=== PATIENT | female | born 1990 | race Caucasian/White ===

== ENCOUNTER 2017-01-29 23:16 | Emergency (ER) | payer SELFPAY ==
[~2017-01-29] VITALS: Ht 170.2 cm; Wt 54.9 kg
[~2017-01-29 23:16] MED LIST: NO ROUTINE MEDS
[2017-01-29 23:20] VITALS: Ht 170.2 cm; Wt 54.9 kg
--- NOTE | 2017-01-29 23:45 | ERPDOC ---
Departure Disposition Decision Date: January 29, 2017 Disposition Decision Time: 23:46 Disposition: 01 DISCHARGED HOME, SELF-CARE Impression Impression Impression: Primary Impression: Acute otitis media Qualified Codes: H66.002 - Acute suppurative otitis media without spontaneous rupture of ear drum, left ear Severity: Moderate Condition: Stable Seen By: Mid-level only Referrals: JEANNE ARANGO APRN (Family) Patient Instructions: Otitis Media (ED) Problems/Meds/Labs Reviewed?: Yes Medications reviewed and manag: Yes Additional Instructions: Take the Zithromax as prescribed as well as the prednisone. Follow up with your primary care provider if this is not improving in the next 1-2 days. May take over the counter medications as needed for pain. Follow up care ordered?: Yes Mental Status: Alert Scripts Azithromycin (Zithromax) 250 Mg Tablet 1 TAB PO DAILY, #4 TAB 0 Refills TAKE TWO ON DAY ONE, THEN ONE TAB DAILY UNTIL ALL TAKEN. Prov: MANUEL PACKER APRN 01/29/17 Prednisone (Prednisone) 20 Mg Tablet 20 MG PO BIDWM, #6 TAB 0 Refills Take 1 tablet, by mouth, 2 times a day with meals. Prov: MANUEL PACKER APRN 01/29/17 HPI - EENT General General Chief Complaint: Ear Pain/Injury Stated Complaint: LEFT EAR PAIN Time Seen by Provider: 23:41 Source: patient Exam Limitations: no limitations HPI - EENT General Initial Comments She has been having some left ear pain for the last few days. Feels like it pops and then she hears a loud ringing in her ear several times a day. She denies any fever or chills or nasal congestion/drainage. She denies any history of trouble with her ears in the past. Has not taken anything for this so far. Occurred At: home Onset/Timing: Gradual Duration: other (Over the last several days) Severity: moderate Location: ear (L) Prearrival Treatment: no prearrival treatment Associated Symptoms: change in hearing (at times hears a loud ringing sound), DENIES: cough, drooling, ear drainage, facial pain/swelling, fever, malaise, nasal congestion/drainage, poor fluid intake, poor solids intake, sinus infection, sore throat, tooth pain, voice change Allergies: Coded Allergies: peanut (Verified Allergy, Severe, THROAT SWELLING, RESP. DISTRESS, 08/30/16 ) "FROM PEANUT BUTTER" Penicillins (Verified Allergy, Intermediate, RASH, 08/30/16) Past History Past Medical History Pt denies signifigant PMH ENMT: sore throats Hx Echocardiogram: No Respiratory: pneumonia Female: living children Neurological: headaches Surgical History Denies Surgeries Family History Family PMH: FOUND: cancer, diabetes Vaccines Hx Influenza Vaccination: No Hx Pneumococcal Vaccination: No Hx Tetanus, Diptheria, Pertuss: Yes (06/13/10) Social History Smoking Status: Never smoker Substance Use Type: does not use Alcohol Intake: occasionally Sexuality: male partner Review of Systems Constitutional Constitutional: DENIES: chills, dizziness, fatigue, fever, weakness Eyes Vision: DENIES: blurring, double vision ENMT Ears: pain, DENIES: drainage Sinuses: DENIES: congestion, rhinorrhea Mouth/Throat: DENIES: painful swallowing, scratchy throat, sore throat Cardiovascular Cardiac: DENIES: chest pain, orthopnea Rhythm/Rate: DENIES: irregular beat, palpitations Pulmonary Respiratory: DENIES: cough, dyspnea, sputum Integumentary Skin: DENIES: rash Neurological General: DENIES: headache, numbness, tingling, weakness Physical Exam General General Nourishment: well nourished, well developed, appears stated age, no acute distress, adult, thin General Body Habitus: well groomed Vitals and Pain First Documented Vital Signs Date Time Temp Pulse Resp B/P Pulse Ox O2 Delivery O2 Flow Rate FiO2 01/29/17 23:20 98.4 71 18 132/87 99 Room Air Weight: Kilograms: Height (feet): 5 Height (inches): 7.00 Triage Pain Scale: RN VS reviewed by Provider: Yes Normal Exams: Eyes: Pupils are PERRLA w/ EOMI, No scleral icterus, irritation, or foreign bodies noted Neck: Full range of motion, without adenopathy, JVD, bruits or thyromegaly Lymphatic: No lymphadenopathy, or lymphedema noted Integumentary: No rashes, hives, or bruising noted Neurologic: Patient is alert, and oriented Psychiatric: Patient exhibits, appropriate attention, emotion and affect ENMT (brief) ENMT Brief: FOUND: mucosa moist, normal dentition, normal tonsils, NOT FOUND: lesions, nasal erythema, nasal exudate, nasal swelling, petechiae, pharnyx erythema, tonsillar deviation ENMT Tympanic Membrane #1: Location: Right Tympanic Membrane: FOUND Normal Hearing: FOUND: normal acuity Tympanic Membrane #2: Location: Left Tympanic Membrane: FOUND Erythema, FOUND other (appears slightly thickened in the region that is not inflamed), NOT FOUND Bulging, NOT FOUND Fluid, NOT FOUND Mobility, NOT FOUND Perforation, NOT FOUND Retracted Hearing: FOUND: normal acuity Pharynx: NOT FOUND: cobblestoning, displacement, exudates, lateral pillar sign , posterior drainage, tonsil color, uvular deviation Jaw: NOT FOUND: trismus Differential Diagnoses Considering: Other (AOM, OME, eustacian tube dysfunction, TM perforation) Progress Results/Orders Orders Procedure Category Date Status Time Azithromycin PHA 01/30/17 Complete (Zithromax 500 Mg) 00:00 Prednisone PHA 01/30/17 Complete (Prednisone) 00:00 Medications Current ED Medications Azithromycin (ZITHROMAX 500 mg) 500 mg O ONCE PO Last administered on 00:05; Start 01/30/17 at 00:00; Stop 01/30/17 at 00:01; Status DC Prednisone (PredniSONE) 20 mg O ONCE PO Last administered on 01/30/17 00:05; Start 01/30/17 at 00:00; Stop 01/30/17 at 00:01; Status DC Progress Progress Her left TM does appear inflamed and erythematous. Will have her start on Zithromax today and a dose of steroids as well. Will have her follow up with her PCP if this is not improving in the next 1-2 days. Ibuprofen and/or Tylenol as needed for pain. MANUEL PACKER APRN January 29, 2017 23:45
[2017-01-29] MEDS ORDERED: AZIT250T PO (23:48)
[2017-01-29] MEDS ORDERED: PRED20TA PO (23:48)
[2017-01-30] MEDS ORDERED: AZITHROMYCIN 500 MG TABLET PO ONE
[2017-01-30] MEDS ORDERED: PredniSONE 10 MG TABLET PO ONE
[2017-01-30 00:10] VITALS: BP 132/87; PULSE 71; RESP 18; TEMP 98.4; O2SAT 99
--- NOTE | 2017-01-30 00:10 | NUR ---
DEPART PT IS GIVEN DISMISSAL INSTRUCTIONS WITH VERBAL UNDERSTANDING. PT IS GIVEN SCRIPTS X2. PT IS AMBULATORY TO ED REGISTRATION DESK
== END 2017-01-30 00:10 | disposition home or self-care (01) ==
LOC: ED 23:16
DX: H66.002 Acute suppurative otitis media without spontaneous rupture of ear drum, left ear (principal)